=== PATIENT | female | born 1970 | race American Indian/Alaskan Native ===

== ENCOUNTER 2018-11-25 15:37 | Emergency (ER) | payer OTHER ==
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
[2018-11-25 15:49] VITALS: BP 130/77
[2018-11-25] MEDS ORDERED: TYLENOL PO ONE (16:39)
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
== END 2018-11-25 17:27 | disposition home or self-care (01) ==
LOC: ED 15:37
DX: M54.2 Cervicalgia (principal); M79.18 Myalgia, other site; M54.5 Low back pain; G89.29 Other chronic pain; V49.49XA Driver injured in collision with other motor vehicles in traffic accident, initial encounter; Y93.89 Activity, other specified; Y92.488 Other paved roadways as the place of occurrence of the external cause; Y99.8 Other external cause status
CPT/HCPCS: 72040